=== PATIENT | female | born 1950 | race Two or more races ===

== ENCOUNTER → 2024-05-23 | Outpatient (BNVA) | payer MEDICARE, MEDICAID, SELFPAY | END | disposition home or self-care (01) | PROVIDERS: PCP Nurse Practitioner Family; Referring Provider Nurse Practitioner Family; Visit Provider Nurse Practitioner Family | DX: R42 Dizziness and giddiness (principal); Z23 Encounter for immunization; E11.9 Type 2 diabetes mellitus without complications; E66.9 Obesity, unspecified; E78.5 Hyperlipidemia, unspecified; H66.90 Otitis media, unspecified, unspecified ear; H72.90 Unspecified perforation of tympanic membrane, unspecified ear; Z12.11 Encounter for screening for malignant neoplasm of colon; Z12.31 Encounter for screening mammogram for malignant neoplasm of breast; Z13.820 Encounter for screening for osteoporosis | CPT/HCPCS: 83036; 90471; 90686; 99215 ==

== ENCOUNTER → 2024-06-06 | Outpatient (BNVA) | payer MEDICARE, MEDICAID, SELFPAY | END | disposition home or self-care (01) | PROVIDERS: PCP Nurse Practitioner Family; Referring Provider Nurse Practitioner Family; Visit Provider Nurse Practitioner Family | DX: R42 Dizziness and giddiness (principal); I10 Essential (primary) hypertension; T50.905A Adverse effect of unspecified drugs, medicaments and biological substances, initial encounter; B36.9 Superficial mycosis, unspecified; H62.41 Otitis externa in other diseases classified elsewhere, right ear | CPT/HCPCS: 99214 ==

== ENCOUNTER → 2024-06-20 | Outpatient (BNVA) | payer MEDICARE, MEDICAID, SELFPAY | END | disposition home or self-care (01) | PROVIDERS: PCP Nurse Practitioner Family; Referring Provider Nurse Practitioner Family; Visit Provider Nurse Practitioner Family | DX: Z00.01 Encounter for general adult medical examination with abnormal findings (principal); B36.9 Superficial mycosis, unspecified; H62.41 Otitis externa in other diseases classified elsewhere, right ear; E11.9 Type 2 diabetes mellitus without complications; E66.9 Obesity, unspecified; I10 Essential (primary) hypertension; E55.9 Vitamin D deficiency, unspecified; R42 Dizziness and giddiness; T50.905A Adverse effect of unspecified drugs, medicaments and biological substances, initial encounter; R55 Syncope and collapse; H91.90 Unspecified hearing loss, unspecified ear; R41.3 Other amnesia; E78.5 Hyperlipidemia, unspecified | CPT/HCPCS: 93005; 99215 ==

== ENCOUNTER → 2024-06-30 | Outpatient (CLI) | payer MEDICARE, MEDICAID, SELFPAY ==
--- NOTE | 2024-06-30 14:30 | XR_ITS ---
Examination: Bone densitometry Date and time of exam:June 30, 2024 0834 hrs. Indications: Menopause age 45, diabetic Technique: Lumbar spine and hip total bone mineralization values of an calculated. Peak reference and age match control results have been displayed. Findings: Lumbar spine total bone mineralization is0.743 gm/cm2. This is 2.8 standard deviations below peak reference. This is 0.4 standard deviations below age-matched controls. Hip total bone mineralization is 0.818 gm/cm2 This is 1.1 standard deviations below peak reference. This is 0.7 standard deviations above age-matched controls Impression: There is osteoporosis based on lumbar spine measurements. There is osteopenia based on hip measurements
--- NOTE | 2024-06-30 15:15 | XR_ITS ---
Examination: Screening digital mammography, bilateral Computer aided detection 3-D breast Tomosynthesis, bilateral Date and time of exam: 06/22/2024, 8:19 AM Comparisons: May 23, 2013 Indications: Screening Technique: Nonmagnified MLO, CC views of the breasts to been obtained, reconstructed from 3-D Tomosynthesis images. R2 computer aided detection program utilized for evaluation of suspicious masses and/or abnormal calcifications. 3-D Tomosynthesis images obtained. Technologist: Findings: There are scattered areas of fibroglandular density. No evidence of abnormal masses or suspicious calcifications. Impression: BI-RADS category 1: Negative findings (within normal) Recommend 1 year follow-up mammogram
== END | disposition home or self-care (01) ==
PROVIDERS: Referring Provider Nurse Practitioner Family; Visit Provider Nurse Practitioner Family
DX: Z12.31 Encounter for screening mammogram for malignant neoplasm of breast (principal); R92.313 Mammographic fatty tissue density, bilateral breasts; M81.0 Age-related osteoporosis without current pathological fracture; M85.88 Other specified disorders of bone density and structure, other site
CPT/HCPCS: 77063; 77067; 77080

== ENCOUNTER → 2024-07-04 | Outpatient (BNVA) | payer MEDICARE, MEDICAID, SELFPAY | END | disposition home or self-care (01) | PROVIDERS: PCP Nurse Practitioner Family; Referring Provider Nurse Practitioner Family; Visit Provider Nurse Practitioner Family | DX: H70.91 Unspecified mastoiditis, right ear (principal); R42 Dizziness and giddiness; B36.9 Superficial mycosis, unspecified; H62.41 Otitis externa in other diseases classified elsewhere, right ear; Z71.2 Person consulting for explanation of examination or test findings | CPT/HCPCS: 99213 ==

== ENCOUNTER 2024-07-05 12:55 | Emergency (ER) | payer MEDICARE, MEDICAID, SELFPAY ==
[2024-07-05 13:17] VITALS: BP 154/73; PULSE 72; RESP 18; TEMP 36.9; O2SAT 96; BMI 25.7
--- NOTE | 2024-07-05 13:23 | EDRME_ITS ---
Rapid Medical Screening Exam [facility] Arrival date/time: 07/05/24 12:55 74-year-old female with a history of hyperlipidemia, hypertension, type 2 diabetes presents to the emergency room with a chief complaint of right ear drainage and pain. Patient was seen this morning by her primary care provider and was sent to the emergency room for failed mastoiditis outpatient treatment. Patient also has a ruptured right-sided tympanic membrane that has been treated with ofloxacin and Augmentin. Daughter at bedside states the mother has been dealing with this issue for several months. Today her primary care provider recommended her to come to the emergency room for IV antibiotics. Patient had an MRI done this morning. I have greeted and performed a focused initial assessment of this patient. A comprehensive ED assessment and evaluation of the patient, analysis of all test results, and completion of the medical decision making process will be conducted by additional ED providers. Chief Complaint: Ear Vital signs: Vital Signs Temperature 98.5 F 07/05/24 13:17 Pulse Rate 72 07/05/24 13:17 Respiratory Rate 18 07/05/24 13:17 Blood Pressure 154/73 H 07/05/24 13:17 Pulse Oximetry (%) 96 07/05/24 13:17 Oxygen Delivery Method Room Air 07/05/24 13:17 Vital signs reviewed by provider: Yes
--- NOTE | 2024-07-05 13:35 | XR_ITS ---
Examination: PA lateral chest 2 views TECHNIQUE: Upright AP lateral chest 2 views Exam date and time: July 05, 2024 1344 hours INDICATIONS: Onset chest pain today. FINDINGS: Normal heart size Lungs are clear. The osseous structures are intact IMPRESSION: No active disease
--- NOTE | 2024-07-05 13:38 | PD.EDURI ---
Upper Respiratory Inf. RME/HPI General Chief Complaint: Ear Stated Complaint: Sent by pmd for left ear mastoiditis, failed OP tx Time Seen by Provider: 07/05/24 13:30 Source: patient Arrival date/time: 07/05/24 12:55 74-year-old [place] Mode of arrival: ambulatory Limitations: no limitations RME / HPI RME / HPI Narrative: 07/05/24 12:55 74-year-old female with a history of hyperlipidemia, hypertension, type 2 diabetes presents to the emergency room with a chief complaint of right ear drainage and pain. Patient was seen this morning by her primary care provider and was sent to the emergency room for failed mastoiditis outpatient treatment. Patient also has a ruptured right-sided tympanic membrane that has been treated with ofloxacin and Augmentin. Daughter at bedside states the mother has been dealing with this issue for several months. Today her primary care provider recommended her to come to the emergency room for IV antibiotics. Patient had an MRI done this morning. I have greeted and performed a focused initial assessment of this patient. A comprehensive ED assessment and evaluation of the patient, analysis of all test results, and completion of the medical decision making process will be conducted by additional ED providers. Related Data Previous Rx's ?Medication ?Instructions ?Recorded blood sugar diagnostic (Pharmacist #50 ea 10/29/22 Choice Glucose Test Strips) blood-glucose meter #1 ea 10/29/22 lancets 30 gauge (BD Ultra-Fine II #200 ea 10/29/22 Lancets) alendronate 70 mg effervescent 70 mg PO QWEEK #4 ea 07/04/24 tablet calcium carbonate 500 mg PO QDAY #90 tabs 07/04/24 empagliflozin 10 mg tablet 10 mg PO QAM #30 tabs 07/04/24 (Jardiance) ergocalciferol (vitamin D2) 1,250 50,000 unit PO QWEEK 12 weeks #12 07/04/24 mcg (50,000 unit) capsule caps hydrochlorothiazide 25 mg tablet 25 mg PO QDAY 90 days #90 tabs 07/04/24 lisinopril 40 mg tablet 40 mg PO QDAY 90 days #90 tabs 07/04/24 nitrofurantoin 100 mg PO BID 5 days #10 caps 07/04/24 monohydrate/macrocrystals 100 mg capsule (Macrobid) rosuvastatin 20 mg tablet 20 mg PO HS 90 days #90 tabs 07/04/24 sitagliptin phosphate 100 mg 100 mg PO QDAY #90 tabs 07/04/24 tablet (Januvia) Allergies Allergy/AdvReac Type Severity Reaction Status Date / Time No Known Allergies Allergy Verified 07/05/24 12:57 ED Exam General Limitations: Present no limitations Course Orders Category Date Time Status Bedside COVID-19 Antigen Test NOW Care 07/05/24 13:35 Active Bedside Influenza A&B Antigen Test NOW Care 07/05/24 13:35 Active Insert IV STAT Care 07/05/24 13:21 Active XR chest 2V Stat Exams 07/05/24 13:35 Ordered Vancomycin Inj 1,000 mg Med 07/05/24 13:23 Discontinued Sodium Chloride 0.9% 250 ml [Ns] 250 ml IV X1 cefTRIAXone [Rocephin] 2 gm Med 07/05/24 13:22 Discontinued SODIUM CHLORIDE 0.9% (Popper) [Ns 0.9% (P)] 50 ml IV X1 Vital Signs Vital signs: Vital Signs Temperature 98.5 F 07/05/24 13:17 Pulse Rate 72 07/05/24 13:17 Respiratory Rate 18 07/05/24 13:17 Blood Pressure 154/73 H 07/05/24 13:17 Pulse Oximetry (%) 96 07/05/24 13:17 Oxygen Delivery Method Room Air 07/05/24 13:17 Upper Respiratory Infection Medications / Prescriptions Medication administrations:: Medication Administration History Discontinued Medications Ceftriaxone Sodium 2 gm/ (Sodium Chloride) 50 mls @ 100 mls/hr IV X1 ONE Stop: 07/05/24 13:51 Vancomycin HCl 1,000 mg/ (Sodium Chloride) 250 mls @ 150 mls/hr IV X1 ONE Stop: 07/05/24 15:02 Discharge Plan Prescriptions/Referrals Prescriptions/Med Rec: No Action nitrofurantoin monohyd/m-cryst [Macrobid] 100 mg capsule 100 mg PO BID 5 Days Qty: 10 0RF Rx Instructions: must administer with a meal/food Jardiance 10 mg tablet 10 mg PO QAM Qty: 30 0RF alendronate 70 mg tablet, effervescent 70 mg PO QWEEK Qty: 4 11RF Rx Instructions: MUST be taken on empty stomach, sitting in upright position, & no food x 30 mins Januvia 100 mg tablet 100 mg PO QDAY Qty: 90 0RF lisinopril 40 mg tablet 40 mg PO QDAY 90 Days Qty: 90 0RF Rx Instructions: Directions in Stateless hydrochlorothiazide 25 mg tablet 25 mg PO QDAY 90 Days Qty: 90 0RF rosuvastatin 20 mg tablet 20 mg PO HS 90 Days Qty: 90 0RF ergocalciferol (vitamin D2) 1,250 mcg (50,000 unit) capsule 50,000 unit PO QWEEK 84 Days Qty: 12 0RF calcium carbonate 500 mg calcium (1,250 mg) tablet 500 mg PO QDAY Qty: 90 1RF (DME) blood-glucose meter Kit See Rx Instructions .Route Qty: 1 0RF Rx Instructions: As directed (DME) lancets [BD Ultra-Fine II Lancets] 30 gauge misc See Rx Instructions .Route Qty: 200 0RF Rx Instructions: As directed (DME) Pharmacist Choice Strip See Rx Instructions .Route Qty: 50 3RF Rx Instructions: As directed Patient/Caregiver Discharge Instructions Print Language: Stateless
--- NOTE | 2024-07-05 13:54 | EDNOTE_ITS ---
ED Ear RME/HPI General Chief complaint: Ear Stated complaint: Sent by pmd for left ear mastoiditis, failed OP tx Time Seen by Provider: 07/05/24 13:30 Source: patient Arrival date/time: 07/05/24 12:55 74-year-old female with past medical history of hypertension, diabetes, and hyperlipidemia presents emergency department complaining of right ear pain 2 out of 10 with headache that is also a 2 out of 10. Daughter at bedside reports patient has had ongoing symptoms for 5 months. According to daughter patient developed symptoms in [place] seen ENT in [place] had ear lavage several times and has completed 3 rounds of antibiotics which the last being 1 month ago oral Augmentin. Patient reports has also had 2 rounds of attic antibiotics ofloxacin. Patient reports had MRI done and was sent by primary care provider for significant mastoiditis. Patient appears nontoxic is GCS of 15 with steady gait. Patient denies any fever, chills, nuchal rigidity, vision changes, petechia, rashes, or any other associated symptom. Mode of arrival: ambulatory Limitations: no limitations RME / HPI RME / HPI Narrative: 07/05/24 12:55 74-year-old female with a history of hyperlipidemia, hypertension, type 2 diabetes presents to the emergency room with a chief complaint of right ear drainage and pain. Patient was seen this morning by her primary care provider and was sent to the emergency room for failed mastoiditis outpatient treatment. Patient also has a ruptured right-sided tympanic membrane that has been treated with ofloxacin and Augmentin. Daughter at bedside states the mother has been dealing with this issue for several months. Today her primary care provider recommended her to come to the emergency room for IV antibiotics. Patient had an MRI done this morning. I have greeted and performed a focused initial assessment of this patient. A comprehensive ED assessment and evaluation of the patient, analysis of all test results, and completion of the medical decision making process will be conducted by additional ED providers. Related Data Previous Rx's ?Medication ?Instructions ?Recorded blood sugar diagnostic (Pharmacist #50 ea 10/29/22 Choice Glucose Test Strips) blood-glucose meter #1 ea 10/29/22 lancets 30 gauge (BD Ultra-Fine II #200 ea 10/29/22 Lancets) alendronate 70 mg effervescent 70 mg PO QWEEK #4 ea tablet calcium carbonate 500 mg PO QDAY #90 tabs 03/0 08/25 empagliflozin 10 mg tablet 10 mg PO QAM #30 tabs 07/04 (Jardiance) ergocalciferol (vitamin D2) 1,250 50,000 unit PO QWEEK 12 weeks #12 07/04/24 mcg (50,000 unit) capsule caps hydrochlorothiazide 25 mg tablet 25 mg PO QDAY 90 days #90 tabs 07/04/24 lisinopril 40 mg tablet 40 mg PO QDAY 90 days #90 ta bs 07/04/24 nitrofurantoin 100 mg PO BID 5 days #10 cap s 07/04/24 monohydrate/macrocrystals 100 mg capsule (Macrobid) rosuvastatin 20 mg tablet 20 mg PO HS 90 days #90 tabs 07/04/24 sitagliptin phosphate 100 mg 100 mg PO QDAY #90 tabs 0 07/04/24 tablet (Januvia) acetaminophen 500 mg capsule 500 mg PO Q6H PRN pain #3 0 caps 07/05/24 fluconazole 200 mg tablet 400 mg (2 x 200 mg) PO QDAY 14 07/05/24 days #28 tabs levofloxacin 500 mg tablet 500 mg PO Q24H 7 days #7 ta bs 07/05/24 ofloxacin 0.3 % ear drops 10 drp otic (ear) QDAY 7 day s #10 07/05/24 mL Allergies Allergy/AdvReac Type Severity Reaction Status Date / Time No Known Allergies Allergy Verified 07/05/24 12:57 Review of Systems Review of Systems Systems Reviewed: All systems reviewed, normal except as documented Constitutional Constitutional: Reports system reviewed and no additional complaints, except as documented, Denies body ache(s), Denies chills, Denies fever(s) and Reports headache(s) Eyes Eyes: Reports system reviewed and no additional complaints, except as documented and Denies change in vision ENT Ears, Nose, Mouth, and Throat: Reports system reviewed and no additional complaints, except as documented, Denies disequilibrium, Denies dizziness, Reports otalgia, Reports headache(s), Denies sore throat and Denies vertigo Cardiovascular Cardiovascular: Reports system reviewed and no additional complaints, except as documented, Denies chest pain and Denies dyspnea Respiratory Respiratory: Reports system reviewed and no additional complaints, except as documented, Denies chest congestion, Denies cough and Denies dyspnea Gastrointestinal Gastrointestinal: Reports system reviewed and no additional complaints, except as documented, Denies abdominal pain, Denies nausea and Denies vomiting Musculoskeletal Musculoskeletal: Reports system reviewed and no additional complaints, except as documented, Denies abnormal gait and Denies arthralgias Integumentary/Breasts Skin/Breast: Reports system reviewed and no additional complaints, except as documented, Denies erythema, Denies rash and Denies wounds Neurologic Neurologic: Reports system reviewed and no additional complaints, except as documented, Denies abnormal gait, Denies disequilibrium, Denies dizziness, Reports headache(s) and Denies vertigo Past Medical History Past Medical History NEUROLOGIC: Negative Neurological Disorders or Seizures CARDIAC: Negative Cardiac Disorders or Congestive Heart Failure RESPIRATORY: Negative Chronic Obstructive Pulmonary Disease (COPD) GASTROINTESTINAL: Negative Gastrointestinal Disorders GENITOURINARY: Negative Genitourinary Disorders or Renal Disease MUSCULOSKELETAL: Positive Musculoskeletal Disorders ENDOCRINE: Positive Diabetes Mellitus Type 2; Negative Diabetes Mellitus Type 1 HEMATOLOGIC: Negative Blood Disorders OTHER HISTORY: Negative Autoimmune Disease, Blood Transfusions, Blood Transfusion Reaction or Anesthesia Reactions Family History FAMILY HISTORY: Negative Family Cardiac Disorders Social History SMOKING STATUS: Never smoker SECOND HAND EXPOSURE: Yes ED Exam General Limitations: Present no limitations General appearance: Present alert and in no apparent distress Head Head exam: Present atraumatic Eye Eye exam: Present normal appearance, PERRL and EOMI ENT ENT exam: Present normal exam, normal oropharynx and mucous membranes moist Expanded ENT Exam External ear exam: Absent external tenderness TM/Canal exam: Right TM: erythema, perforation and canal tenderness Mouth exam: Present normal external inspection Teeth exam: Present normal inspection Throat exam: Present normal inspection; Absent tonsillar erythema Neck Neck exam: Present normal inspection, full ROM, trachea midline and other (Supple) Chest Chest inspection: Present normal inspection and symmetric chest wall rise Respiratory Respiratory exam: Present normal lung sounds bilaterally Cardiovascular Cardiovascular exam: Present regular rate, normal rhythm and normal heart sounds Abdominal Exam Abdominal exam: Present soft and normal bowel sounds Extremities Exam Extremities exam: Present normal inspection and full ROM Back Exam Back exam: Present normal inspection and full ROM Neurological Exam Neurological exam: Present alert, oriented X3 and CN II-XII intact Psychiatric Psychiatric exam: Present normal affect and normal mood Skin Skin exam: Present warm, dry, intact and normal color Course Quality Measures none Orders Category Date Time Status Bedside COVID-19 Antigen Test NOW Care 07/05/24 13:35 Completed Bedside Influenza A&B Antigen Test NOW Care 07/05/24 13:35 Completed Insert IV STAT Care 07/05/24 13:21 Completed XR chest 2V Stat Exams 07/05/24 13:35 Completed Vancomycin Inj 1,000 mg Med 07/05/24 13:23 Discontinued Sodium Chloride 0.9% 250 ml [Ns] 250 ml IV X1 cefTRIAXone [Rocephin] 2 gm Med 07/05/24 13:22 Discontinued SODIUM CHLORIDE 0.9% (Popper) [Ns 0.9% (P)] 50 ml IV X1 Vital Signs Vital signs: Vital Signs Temperature 98.5 F 07/05/24 13:17 Pulse Rate 72 07/05/24 13:17 Respiratory Rate 18 07/05/24 13:17 Blood Pressure 154/73 H 07/05/24 13:17 Pulse Oximetry (%) 96 07/05/24 13:17 Oxygen Delivery Method Room Air 07/05/24 13:17 96% room air within normal limits Ear MDM Narrative MDM Narrative:: 74-year-old female with past medical history of hypertension, diabetes, and hyperlipidemia presents emergency department complaining of right ear pain 2 out of 10 with headache that is also a 2 out of 10. Daughter at bedside reports patient has had ongoing symptoms for 5 months. According to daughter patient developed symptoms in [place] seen ENT in [place] had ear lavage several times and has completed 3 rounds of antibiotics which the last being 1 month ago oral Augmentin. Patient reports has also had 2 rounds of attic antibiotics ofloxacin. Patient reports had MRI done and was sent by primary care provider for significant mastoiditis. Previous doctor visit note does report patient has had positive fungal culture of right ear with no recent antifungal medication. Patient appears nontoxic is GCS of 15 with steady gait. Patient denies any fever, chills, nuchal rigidity, vision changes, petechia, rashes, or any other associated symptom. Patient's primary care provider was consulted via telephone to obtain accurate history and primary care provider does report patient did complete 1 round of Augmentin and 2 rounds of otic ofloxacin. Provider reports positive fungal culture of right ear and has not been treated with antifungal medication. MRI was ordered outpatient and MRI impression significant right mastoiditis. Case was discussed with attending Dr. Montero who recommended no blood work or IV antibiotics due to patient being stable and nontoxic-appearing with no fevers. ENT exam right ear erythematous with no drainage but does have perforated ear. No erythema or swelling to outer ear. No nuchal rigidity. Dr Montero recommends giving oral antibiotics Cipro for coverage against Pseudomonas and starting fluconazole due to be noted she is a full code positive fungal culture and antibiotic otic solution with steroids. Patient discharged on antibiotics instructed daughter and patient to keep follow-up appointment with ENT at the end of this month and return to the emergency department for any worsening symptoms or as needed. Strict return instructions were given especially if patient develops fever worsening pain dizziness, vision changes, or any worsening symptoms. Patient and daughter at bedside given instructions verbally and portal out to ask questions and verbalized understanding of plan. Patient data External records reviewed:: [facility] previous records Clinical information provided by:: patient Social determinants that could affect healthcare access:: none Patient has the following chronic illnesses:: See chart How is presenting disease/condition affected by chronic disease/condition?: uneffected by Evaluation data The following diagnostics were reviewed and interpreted by me:: radiology exam(s) Lab and/or radiology exams considered but not ordered:: Ordered Interpretation Summary: Interpreted by me Medications / Prescriptions Medications or Prescriptions considered but not ordered:: Ordered Medication administrations:: Medication Administration History Discontinued Medications Ceftriaxone Sodium 2 gm/ (Sodium Chloride) 50 mls @ 100 mls/hr IV X1 ONE Stop: 07/05/24 13:51 Last Admin: 07/05/24 14:10 Dose: Not Given Documented By: OA Non-Admin Reason: Discontinued Vancomycin HCl 1,000 mg/ (Sodium Chloride) 250 mls @ 150 mls/hr IV X1 ONE Stop: 07/05/24 15:02 Last Admin: 07/05/24 14:10 Dose: Not Given Documented By: OA Non-Admin Reason: Discontinued Not given Consultations Consultation(s) initiated? (list below): Yes Consultation #1 (Physician, Specialty, Details): Dr. Montero Diagnosis Ear Differential Diagnosis: otitis externa, otitis media and ruptured TM Most likely diagnosis given after review of the tests above:: Acute mastoiditis Admission Indicated Admission indicated?: not indicated Admission Request Was there a request for admission?: No Disposition Plan Disposition Plan: Discharge Discharge Attestation Discharge Attestation: The patient and all family members were given an opportunity to ask questions and understood the discharge instructions. Discharge instructions specifically effects, indications for sooner follow up or return to the emergency department, and the expected course of current diagnosis. Patient condition: Stable Discharge Plan Plan Patient Disposition: HOME (Self Care) Disposition Comment: Stable Prescriptions/Referrals Prescriptions/Med Rec: New fluconazole 200 mg tablet 400 mg PO QDAY 14 Days Qty: 28 0RF acetaminophen 500 mg capsule 500 mg PO Q6H PRN (Reason: pain) Qty: 30 0RF No Action nitrofurantoin monohyd/m-cryst [Macrobid] 100 mg capsule 100 mg PO BID 5 Days Qty: 10 0RF Rx Instructions: must administer with a meal/food Jardiance 10 mg tablet 10 mg PO QAM Qty: 30 0RF alendronate 70 mg tablet, effervescent 70 mg PO QWEEK Qty: 4 11RF Rx Instructions: MUST be taken on empty stomach, sitting in upright position, & no food x 30 mins Januvia 100 mg tablet 100 mg PO QDAY Qty: 90 0RF lisinopril 40 mg tablet 40 mg PO QDAY 90 Days Qty: 90 0RF Rx Instructions: Directions in Arabic hydrochlorothiazide 25 mg tablet 25 mg PO QDAY 90 Days Qty: 90 0RF rosuvastatin 20 mg tablet 20 mg PO HS 90 Days Qty: 90 0RF ergocalciferol (vitamin D2) 1,250 mcg (50,000 unit) capsule 50,000 unit PO QWEEK 84 Days Qty: 12 0RF calcium carbonate 500 mg calcium (1,250 mg) tablet 500 mg PO QDAY Qty: 90 1RF (DME) blood-glucose meter Kit See Rx Instructions .Route Qty: 1 0RF Rx Instructions: As directed (DME) lancets [BD Ultra-Fine II Lancets] 30 gauge misc See Rx Instructions .Route Qty: 200 0RF Rx Instructions: As directed (DME) Pharmacist Choice Strip See Rx Instructions .Route Qty: 50 3RF Rx Instructions: As directed ofloxacin 0.3 % drops 10 drp otic (ear) QDAY 7 Days Qty: 10 0RF levofloxacin 500 mg tablet 500 mg PO Q24H 7 Days Qty: 7 0RF Problem List Clinical Impression: Acute mastoiditis Patient/Caregiver Discharge Instructions Discharge Activity: activity as tolerated Education Materials: Common Middle Ear Problems, Anatomy of the Ear Additional Instructions: Take Tylenol or ibuprofen as needed for pain. Take medication orally as prescribed. Apply otic antibiotic as prescribed. Follow-up with your primary care provider within 1 week. Return immediately to emergency department if you develop any fevers, nuchal rigidity, vomiting, vision changes, worsening symptoms, or as needed. Print Language: Arabic Stand Alone Forms: Sandra Award Info., Patient Portal Info Letter PA/SUPERVISOR FUSING ROOM Supervising Physician PA/SUPERVISOR FUSING ROOM Supervising Physician: Dr. Montero
== END 2024-07-05 17:25 | disposition home or self-care (01) ==
PROVIDERS: Emergency Provider Emergency Medicine; PCP Nurse Practitioner Family
DX: H70.001 Acute mastoiditis without complications, right ear (principal); E11.9 Type 2 diabetes mellitus without complications; I10 Essential (primary) hypertension; E78.5 Hyperlipidemia, unspecified; R07.9 Chest pain, unspecified
CPT/HCPCS: 71046; 80053; 83605; 84145; 85025; 87040; 87086; 99283

== ENCOUNTER → 2024-07-05 | Outpatient (BNVA) | payer MEDICARE, MEDICAID, SELFPAY | END | disposition home or self-care (01) | PROVIDERS: PCP Nurse Practitioner Family; Referring Provider Nurse Practitioner Family; Visit Provider Nurse Practitioner Family | DX: H70.001 Acute mastoiditis without complications, right ear (principal); R42 Dizziness and giddiness; B36.9 Superficial mycosis, unspecified; H62.41 Otitis externa in other diseases classified elsewhere, right ear; Z71.2 Person consulting for explanation of examination or test findings | CPT/HCPCS: 99212; G0463 ==

== ENCOUNTER → 2024-07-05 | Outpatient (CLI) | payer MEDICARE, MEDICAID, SELFPAY ==
--- NOTE | 2024-07-05 07:00 | XR_ITS ---
Examination: MRI brain without intravenous contrast. Date and time of exam: July 05, 2024 0659 hours INDICATIONS: Episodes dizziness and pain in the left head radiating down the left arm beginning March 2024 Technique: Multiple axial and sagittal images of the brain obtained. Siemens high-resolution 1.5 Gisselle short bore scanners utilized. Sagittal sections, T1-weighted, TR 500, TE 14, are performed. Axial sections proton-density and T2-weighted have been obtained. Inversion recovery axial images, TR 9, 260, TE 111, TI 2500. Diffusion weighted images, axial sections, TR 4800, TE 128, B value 1000 Axial sections, ADC map, TR 4800, TE 128 Findings: Enlargement of the sella turcica is not present. The optic chiasm and infundibular are not remarkable. Prepontine and interpeduncular cisterns are not enlarged. There is no localized enlargement of the medulla or kel. Fourth ventricle and cerebellar tonsils appear normal in position. No subacute area of hemorrhage density is seen. Mass in the cerebellopontine angle region is not evident. Globes symmetrical. Orbital musculature including medial lateral rectus muscles do not exhibit abnormality. Diffusion-weighted images demonstrate no focus of restricted diffusion. Increased white matter signal mild Mass effect upon the ventricular system is not identified. Impression: Negative for acute hemorrhage mass effect or midline shift No acute infarct Mild chronic microvascular white matter change Significant right mastoiditis
== END | disposition home or self-care (01) ==
PROVIDERS: PCP Nurse Practitioner Family; Referring Provider Nurse Practitioner Family; Visit Provider Nurse Practitioner Family
DX: H70.91 Unspecified mastoiditis, right ear (principal); R90.82 White matter disease, unspecified
CPT/HCPCS: 70551

== ENCOUNTER → 2024-08-02 | Outpatient (BNVA) | payer MEDICARE, MEDICAID, SELFPAY | END | disposition home or self-care (01) | PROVIDERS: PCP Nurse Practitioner Family; Referring Provider Nurse Practitioner Family; Visit Provider Nurse Practitioner Family | DX: K59.00 Constipation, unspecified (principal); E11.9 Type 2 diabetes mellitus without complications; E66.9 Obesity, unspecified; E78.5 Hyperlipidemia, unspecified; I10 Essential (primary) hypertension; Z12.11 Encounter for screening for malignant neoplasm of colon; Z68.43 Body mass index [BMI] 50.0-59.9, adult | CPT/HCPCS: 83036; 99214 ==

== ENCOUNTER → 2024-08-25 | Outpatient (BNVA) | payer MEDICARE, MEDICAID, SELFPAY | END | disposition home or self-care (01) | PROVIDERS: PCP Nurse Practitioner Family; Referring Provider Nurse Practitioner Family; Visit Provider Nurse Practitioner Family | DX: H66.011 Acute suppurative otitis media with spontaneous rupture of ear drum, right ear (principal); I10 Essential (primary) hypertension | CPT/HCPCS: 99213 ==

== ENCOUNTER → 2024-10-30 | Outpatient (BNVA) | payer MEDICARE, MEDICAID, SELFPAY | END | disposition home or self-care (01) | PROVIDERS: PCP Nurse Practitioner Family; Referring Provider Nurse Practitioner Family; Visit Provider Nurse Practitioner Family | DX: Z71.2 Person consulting for explanation of examination or test findings (principal); E11.69 Type 2 diabetes mellitus with other specified complication; E66.9 Obesity, unspecified; E78.5 Hyperlipidemia, unspecified; I10 Essential (primary) hypertension; E55.9 Vitamin D deficiency, unspecified | CPT/HCPCS: 99213 ==

== ENCOUNTER → 2024-11-17 | Outpatient (BNVA) | payer MEDICARE, MEDICAID, SELFPAY | END | disposition home or self-care (01) | PROVIDERS: PCP Internal Medicine; Referring Provider Internal Medicine; Visit Provider Internal Medicine | DX: E78.5 Hyperlipidemia, unspecified (principal); E11.9 Type 2 diabetes mellitus without complications; I10 Essential (primary) hypertension; E66.9 Obesity, unspecified; Z68.27 Body mass index [BMI] 27.0-27.9, adult | CPT/HCPCS: 99213 ==